=== PATIENT | female | born 1995 | race Caucasian/White ===

== ENCOUNTER 2018-11-27 05:59 | Emergency (ER) | payer BC ==
[~2018-11-27] VITALS: Ht 160 cm; Wt 54.5 kg
[2018-11-27] MEDS ORDERED: ADDERALL10 MG PO (06:28)
[2018-11-27 08:13] VITALS: BP 97/58; PULSE 60; TEMP 98.8
== END 2018-11-27 08:13 | disposition home or self-care (01) ==
LOC: COL.ER 05:59
DX: S71.112A Laceration without foreign body, left thigh, initial encounter (principal); Z23 Encounter for immunization; W26.8XXA Contact with other sharp object(s), not elsewhere classified, initial encounter